=== PATIENT | male | born 1995 | race Caucasian/White ===

== ENCOUNTER 2018-01-04 19:15 | Emergency (ER) | payer OTHER ==
[~2018-01-04] VITALS: Ht 172.7 cm; Wt 78.0 kg
[2018-01-04 19:20] VITALS: Ht 172.7 cm; Wt 78.0 kg
[2018-01-04] MEDS ORDERED: ALBUTEROL HFA 8 GM INHALER INH STA (19:26)
[2018-01-04 19:56] LABS: BASO % 0.4 %; BASO ABS # 0.03 K/uL (0-0.2); EOS % 0.2 %; EOS ABS # 0.02 K/uL (0-0.5); HEMATOCRIT 43.2 % (42-52); HEMOGLOBIN 15.3 g/dL (14.0-18.0); IG# 0.07 K/uL (0.00-0.02); LYMPH % 29.8 %; LYMPH ABS # 2.39 K/uL (1.2-3.4); MEAN CELL VOLUME 88.7 fL (80-100); MEAN CORPUSCULAR HEMOGLOBIN 31.4 pg (25-34); MEAN CORPUSCULAR HGB CONC 35.4 g/dl (32-36); MEAN PLATELET VOLUME 10.1 fL (7.4-10.4); MONO % 12.6 %; MONO ABS # 1.01 K/uL (0.11-0.59); NEUT % 56.1 %; NEUT ABS # 4.51 K/uL (1.4-6.5); PLATELET COUNT 214 K/uL (130-400); RED CELL DISTRIBUTION WIDTH CV 12.6 % (11.5-14.5); RED CELL DISTRIBUTION WIDTH SD 40.3 fL (36.4-46.3); WHITE BLOOD COUNT 8.03 K/uL (4.8-10.8)
[2018-01-04 20:05] VITALS: O2SAT 98
--- NOTE | 2018-01-04 20:08 | EMERGENCY ROOM VISIT NOTE ---
History Report prepared by Leoncio: Colten Andrews Under the Supervision of: Dr. Mamadou Tolbert M.D. First contact with patient: 19:23 Chief Complaint: SHORTNESS OF BREATH Stated Complaint: SHORTNESS OF BREATH History of Present Illness The patient is a 22 year old male who presents to the Emergency Room with complaints of intermittent shortness of breath that he has been experiencing for the past couple of weeks. The patient states that he went to [facility] today for an issue with his left hand and "bumps" on his head, and mentioned the shortness of breath. They took a chest x-ray and EKG. [facility] then referred him to the ER. The patient notes that his shortness of breath generally occurs when he is seated at rest. He was able to run on the treadmill today for an extended period of time without issue. The patient also notes an intermittent "dull" discomfort in his chest. He is still currently experiencing this dull sensation. The patient denies any abdominal pain, dizziness, or weakness. There was no cough/congestion before the symptoms onset. Source of History: patient Onset: Couple of weeks Position: chest Quality: other (SOB) Timing: intermittent Modifying Factors (Worsening): rest (sitting at rest exacerbates the sx) Associated Symptoms: + chest pain Review of Systems See HPI for pertinent positives and negatives. A total of ten systems were reviewed and were otherwise negative. 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 Family History Cancer Social History Smoking Status: Never Smoker Drug Use: none Marital Status: single Housing Status: lives alone Occupation Status: student Current/Historical Medications No Active Prescriptions or Reported Meds Allergies Coded Allergies: No Known Allergies (Unverified , 01/04/18) Physical Exam Vital Signs Date Time Temp Pulse Resp B/P (MAP) Pulse Ox O2 Delivery O2 Flow Rate FiO2 01/04/18 22:00 36.6 60 20 138/74 98 Room Air 01/04/18 20:51 66 01/04/18 20:05 98 Room Air 01/04/18 19:24 95 Room Air 01/04/18 19:20 36.8 63 20 145/86 99 Room Air Physical Exam GENERAL: Awake, alert, well-appearing, in no distress HENT: Normocephalic, atraumatic. Dry mucous membranes. EYES: Normal conjunctiva. Sclera non-icteric. NECK: Supple. No nuchal rigidity. FROM. No JVD. RESPIRATORY: Clear to auscultation. CARDIAC: Regular rate, normal rhythm. Extremities warm and well perfused. Pulses equal. ABDOMEN: Soft, non-distended. No tenderness to palpation. No rebound or guarding. No masses. RECTAL: Deferred. MUSCULOSKELETAL: Chest examination reveals no tenderness. The back is symmetrical on inspection without obvious abnormality. There is no CVA tenderness to palpation. No joint edema. LOWER EXTREMITIES: Calves are equal size bilaterally and non-tender. No edema. No discoloration. NEURO: Normal sensorium. No sensory or motor deficits noted. SKIN: No rash or jaundice noted. There is a systic lesion noted at the dorsum of the left hand, near the base of the second phalanx. There is a second to the right temporal area. No erythema, warmth, tenderness, or crepitus. Medical Decision & Procedures ER Provider Diagnostic Interpretation: Radiology results as stated below per my review and radiologist interpretation: CHEST ONE VIEW PORTABLE CLINICAL HISTORY: 22 years-old Male presenting with sob. TECHNIQUE: Portable upright AP view of the chest was obtained. COMPARISON: Earlier the same day. FINDINGS: Cardiomediastinal silhouette normal. No focal opacity. No large effusion or pneumothorax. Osseous structures normal. Upper abdomen normal. IMPRESSION: 1. No acute cardiopulmonary disease. Electronically signed by: Manjit Rendon M.D. 01/04/2018 9:09 PM Dictated Date/Time: 01/04/2018 9:09 PM Laboratory Results 01/04/18 19:00 Red Blood Count 4.87, Mean Corpuscular Volume 88.7, Mean Corpuscular Hemoglobin 31.4, Mean Corpuscular Hemoglobin Concent 35.4, Mean Platelet Volume 10.1, Neutrophils (%) (Auto) 56.1, Lymphocytes (%) (Auto) 29.8, Monocytes (%) (Auto) 12.6, Eosinophils (%) (Auto) 0.2, Basophils (%) (Auto) 0.4, Neutrophils # (Auto ) 4.51, Lymphocytes # (Auto) 2.39, Monocytes # (Auto) 1.01, Eosinophils # (Auto ) 0.02, Basophils # (Auto) 0.03 01/04/18 19:00 Test 01/04/18 19:00 White Blood Count 8.03 K/uL (4.8-10.8) Red Blood Count 4.87 M/uL (4.7-6.1) Hemoglobin 15.3 g/dL (14.0-18.0) Hematocrit 43.2 % (42-52) Mean Corpuscular Volume 88.7 fL (80-100) Mean Corpuscular Hemoglobin 31.4 pg (25-34) Mean Corpuscular Hemoglobin Concent 35.4 g/dl (32-36) Platelet Count 214 K/uL (130-400) Mean Platelet Volume 10.1 fL (7.4-10.4) Neutrophils (%) (Auto) 56.1 % Lymphocytes (%) (Auto) 29.8 % Monocytes (%) (Auto) 12.6 % Eosinophils (%) (Auto) 0.2 % Basophils (%) (Auto) 0.4 % Neutrophils # (Auto) 4.51 K/uL (1.4-6.5) Lymphocytes # (Auto) 2.39 K/uL (1.2-3.4) Monocytes # (Auto) 1.01 K/uL (0.11-0.59) Eosinophils # (Auto) 0.02 K/uL (0-0.5) Basophils # (Auto) 0.03 K/uL (0-0.2) RDW Standard Deviation 40.3 fL (36.4-46.3) RDW Coefficient of Variation 12.6 % (11.5-14.5) Immature Granulocyte % (Auto) 0.9 % Immature Granulocyte # (Auto) 0.07 K/uL (0.00-0.02) Anion Gap 7.0 mmol/L (3-11) Est Creatinine Clear Calc Drug Dose 84.7 ml/min Estimated GFR () 88.5 Estimated GFR (Non- 76.4 BUN/Creatinine Ratio 10.9 (10-20) Calcium Level 8.9 mg/dl (8.5-10.1) Total Bilirubin 0.4 mg/dl (0.2-1) Direct Bilirubin < 0.1 mg/dl (0-0.2) Aspartate Amino Transf (AST/SGOT) 27 U/L (15-37) Alanine Aminotransferase (ALT/SGPT) 35 U/L (12-78) Alkaline Phosphatase 58 U/L (45-117) Troponin I < 0.015 ng/ml (0-0.045) Total Protein 8.1 gm/dl (6.4-8.2) Albumin 4.2 gm/dl (3.4-5.0) Lipase 117 U/L (73-393) Laboratory results reviewed by me Medications Administered Medications (Trade) Dose Ordered Sig/Yoana Route Start Time Stop Time Status Last Admin Dose Admin Albuterol (Ventolin Hfa Inhaler) 2 puffs NOW STAT INH 01/04/18 19:26 01/04/18 19:34 DC 01/04/18 19:42 2 PUFFS Dexamethasone (Decadron Tab) 10 mg NOW ONCE PO 01/04/18 22:15 01/04/18 22:16 DC 01/04/18 22:22 10 MG ECG Per My Interpretation Indication: SOB/dyspnea Rate (beats per minute): 61 Rhythm: normal sinus Findings: other (Normal [place], Early Repolarization, no DENEEN.STD) ED Course 1924: The patient was evaluated in room C9. A complete history and physical exam was performed. 1925: Ordered Albuterol 2 puffs INH. 2148: I reevaluated the patient. Discussed results and discharge instructions: He verbalized understanding and agreement. The patient is ready for discharge. 2214: Ordered Decadron 10 mg PO. Medical Decision I reviewed the patient's past medical history, medications, and the nursing notes as described above. Differential diagnosis: Etiologies such as infections, reactive airway disease, pneumonia, pneumothorax , COPD, CHF, cardiac ischemia, pulmonary embolism, musculoskeletal, gastrointestinal, as well as others were entertained. The patient is a 22-year-old gentleman PVC healthy presents emergency department with 2 weeks of shortness of breath that occurs mostly when he was at rest and has no effect on his ability to exert himself/workout referred for evaluation to the ED after being seen in urgent care where he actually presented for a check of 2 cysts which are located on his left hand and right scalp respectively, and have been there for years per hpi. On arrival the patient is well-appearing in no acute distress, afebrile stable vital signs. Lungs are clear to auscultation bilaterally. Patient does have 2 cystic lesions , one on the dorsum of his left hand and one on the right temporal scalp with no associated erythema, edema, induration, warmth, tenderness. EKG unremarkable. No DENEEN, MD depressions. Negative Spodick's sign. CXR negative. Labs unremarkable including WBC wnl. Troponin negative in the setting of 2 weeks of sx. Otherwise, Heart score 0, low risk, acs unlikely. PERC negative PE not likely. Not positional, pericarditis not likely. No tearing pain and equal pulses, dissection not likely. Patient denies any improvement with MDI, however given patient's exposure to particulates from his work will attempt dose of dexamethasone to see if he has improvement. Plan for [facility] f/u. Findings and plan for follow-up reviewed with patient. Patient agreeable and d/c'd per discharge instructions. Medication Reconcilliation Current Medication List: was personally reviewed by me Blood Pressure Screening Patient's blood pressure: Elevated blood pressure Blood pressure disposition: Elevated BP felt to be situational Impression Primary Impression: Shortness of breath Scribe Attestation The scribe's documentation has been prepared under my direction and personally reviewed by me in its entirety. I confirm that the note above accurately reflects all work, treatment, procedures, and medical decision making performed by me. Departure Information Dispostion Home / Self-Care Prescriptions No Active Prescriptions or Reported Meds Patient Instructions ED Dyspnea Shortness of Breath, [facility] Additional Instructions Please follow up with S in the next 1-3 days for re-evaluation and for dermatology referral for your cysts. The cause of your shortness of breath is unclear at this time. It is possible that it may be related to seasonal allergies or even your work which exposes you to particulates. Otherwise, your exam, EKG, chest xray, and lab results did not show signs of an emergent condition at this time. Acetaminophen or ibuprofen for pain and fevers as needed. Albuterol every 4 hours as needed for shortness of breath/cough. You may also attempt [id number] antihistamine such as Claritin to see if these also improve your symptoms. Drink plenty of fluids to ensure hydration. Return to the emergency department for worsening symptoms as described in the accompanying instructions.
[2018-01-04 20:17] LABS: ALBUMIN 4.2 gm/dl (3.4-5.0); ALT/SGPT 35 U/L (12-78); AST/SGOT 27 U/L (15-37); BLOOD UREA NITROGEN 14 mg/dl (7-18); CALCIUM 8.9 mg/dl (8.5-10.1); CARBON DIOXIDE 28 mmol/L (21-32); GLUCOSE 99 mg/dl (70-99); LIPASE 117 U/L (73-393); POTASSIUM 3.9 mmol/L (3.5-5.1); SODIUM 141 mmol/L (136-145)
[2018-01-04 20:22] LABS: ALKALINE PHOSPHATASE 58 U/L (45-117); TOTAL PROTEIN 8.1 gm/dl (6.4-8.2)
--- NOTE | 2018-01-04 21:11 | DIAGNOSTIC IMAGING REPORT ---
CHEST ONE VIEW PORTABLE CLINICAL HISTORY: 22 years-old Male presenting with sob. TECHNIQUE: Portable upright AP view of the chest was obtained. COMPARISON: Earlier the same day. FINDINGS: Cardiomediastinal silhouette normal. No focal opacity. No large effusion or pneumothorax. Osseous structures normal. Upper abdomen normal. IMPRESSION: 1. No acute cardiopulmonary disease. Electronically signed by: Manjit Rendon M.D. 01/04/2018 9:09 PM Dictated Date/Time: 01/04/2018 9:09 PM
[2018-01-04 22:00] VITALS: BP 138/74; PULSE 60; TEMP 36.6; O2SAT 98
[2018-01-04] MEDS ORDERED: DEXAMETHASONE 4 MG TAB PO ONE (22:15)
== END 2018-01-04 22:24 | disposition home or self-care (01) ==
LOC: C.EDB 19:17 → C.EDC 22:24
DX: R06.02 Shortness of breath (principal)

== ENCOUNTER → 2018-01-08 | Outpatient (CLI) | payer OTHER | END | disposition home or self-care (01) | LOC: C.RDSM 14:54 | PROVIDERS: ATTEND Orthopaedic Surgery | DX: M79.642 Pain in left hand (principal) ==